=== PATIENT | male | born 1980 ===

== ENCOUNTER 2020-10-01 20:10 | Emergency (ER) | payer BC ==
[~2020-10-01] VITALS: Ht 160 cm; Wt 59.6 kg
[2020-10-01 20:19] VITALS: BP 126/85
--- NOTE | 2020-10-01 22:04 | NUR ---
Pool Manager: Pt walked back from lobby to room at this time. Steady upon ambulation. No acute distress noted.
[2020-10-01 23:25] LABS: BASOPHILS % (AUTO) 1 % (0-1); EOSINOPHILS % (AUTO) 5 % (1-7); LYMPHOCYTES % (AUTO) 26 % (22-44); MEAN CORPUSCULAR HEMOGLOBIN 32.9 pg (27.5-34.5); MEAN CORPUSCULAR HGB CONC 35.5 g/dL (33.2-36.2); MEAN PLATELET VOLUME 6.7 fL (7.4-10.4); MONOCYTES % (AUTO) 7 % (2-9); NEUTROPHILS % (AUTO) 61 % (42-75); PLATELET COUNT 292 x10^3/uL (130-400); RED BLOOD COUNT 4.71 x10^6/uL (4.38-5.82); RED CELL DISTRIBUTION WIDTH 13.6 % (9.4-14.8)
[2020-10-01 23:26] LABS: HCT (SEDRATE) 43.6 % (39.2-51.8)
[2020-10-01 23:31] LABS: ALBUMIN 3.9 g/dL (3.4-5.0); ANION GAP 7 mmol/L (5-15); C-REACTIVE PROTEIN, QUANT 0.39 mg/dL (0.02-0.49); CALCIUM 8.4 mg/dL (8.5-10.1); CHLORIDE 108 mmol/L (98-107); CREATININE 1.16 mg/dL (0.7-1.3)
[2020-10-02] MEDS ORDERED: HYDROcodone/APAP 10/325 MG TABLET PO ONE (01:00)
[2020-10-02] MEDS ORDERED: HYDROcodone/APAP 10/325 MG TABLET ONE (01:16)
== END 2020-10-02 01:25 | disposition home or self-care (01) ==
LOC: ED 23:04
DX: M77.8 Other enthesopathies, not elsewhere classified (principal); M79.642 Pain in left hand
CPT/HCPCS: 36415; 80048; 82040; 84550; 85025; 85651; 86140; 99284

== ENCOUNTER 2020-10-03 22:44 | Inpatient (IN) | payer BC ==
[~2020-10-03] VITALS: Ht 160 cm; Wt 60.1 kg
--- NOTE | 2020-10-04 00:17 | NUR ---
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 TO ROOM FROM LOBBY AT THIS TIME.
--- NOTE | 2020-10-04 00:27 | NUR ---
erp at bedside with supervisor fabrication and assembly
[2020-10-04 00:54] LABS: BASOPHILS % (AUTO) 1 % (0-1); EOSINOPHILS % (AUTO) 2 % (1-7); LYMPHOCYTES % (AUTO) 18 % (22-44); MEAN CORPUSCULAR HEMOGLOBIN 32.8 pg (27.5-34.5); MEAN CORPUSCULAR HGB CONC 35.3 g/dL (33.2-36.2); MEAN PLATELET VOLUME 6.6 fL (7.4-10.4); MONOCYTES % (AUTO) 7 % (2-9); NEUTROPHILS % (AUTO) 73 % (42-75); PLATELET COUNT 274 x10^3/uL (130-400); RED BLOOD COUNT 4.89 x10^6/uL (4.38-5.82); RED CELL DISTRIBUTION WIDTH 13.3 % (9.4-14.8)
[2020-10-04 00:55] LABS: HCT (SEDRATE) 45.4 % (39.2-51.8)
[2020-10-04] MEDS ORDERED: MORPHINE SULFATE 4 MG/ML, 1ML ONE (00:58)
[2020-10-04] MEDS ORDERED: ONDANSETRON 2MG/ML, 2ML ONE ×2 (00:58→11:02)
[2020-10-04] MEDS ORDERED: MORPHINE SULFATE 4 MG/ML, 1ML IVPush PRN (01:00)
[2020-10-04] MEDS ORDERED: VANCOMYCIN 1,400 MG in SODIUM CHLORIDE 0.9% 250 ML IV ONE (01:00)
[2020-10-04] MEDS ORDERED: VANCOMYCIN PER PHARMACY MC PRN ×2 (01:00→15:00)
[2020-10-04] MEDS ORDERED: ONDANSETRON 2MG/ML, 2ML IVPush ONE (01:00)
[2020-10-04] MEDS ORDERED: CEFTRIAXONE 1,000 MG in DEXTROSE 5% 50 ML IVPB ONE (01:00)
[2020-10-04 01:05] LABS: ALBUMIN 3.9 g/dL (3.4-5.0); ANION GAP 9 mmol/L (5-15); CALCIUM 8.8 mg/dL (8.5-10.1); CHLORIDE 106 mmol/L (98-107); CREATININE 0.79 mg/dL (0.7-1.3)
--- NOTE | 2020-10-04 01:51 | NUR ---
ABX HUNG AFTER BC
--- NOTE | 2020-10-04 02:05 | NUR ---
REPORT GIVEN TO ROLY PERAZA
[2020-10-04 02:14] VITALS: BP 135/87
[2020-10-04] MEDS: morphine SULFATE 10 MG/ML, 1ML IVPush PRN ×4 (04:29→22:04)
[2020-10-04] MEDS ORDERED: ONDANSETRON 2MG/ML, 2ML IVPush PRN ×2 (04:30→12:00)
[2020-10-04] MEDS ORDERED: LABETALOL 5MG/ML, 20ML IVPush PRN (04:30)
[2020-10-04 07:18] VITALS: BP 120/74
[2020-10-04] MEDS: SENNA/DOCUSATE TABLET PO SCH ×2 (08:36→08:43)
[2020-10-04] MEDS ORDERED: CHLORHEXIDINE 15 ML UDC ONE (10:18)
[2020-10-04] MEDS ORDERED: CHLORHEXIDINE 15 ML UDC PO ONE (10:30)
[2020-10-04] MEDS ORDERED: CEFAZOLIN 1,000 MG ONE (11:02)
[2020-10-04] MEDS ORDERED: PROPOFOL 10 MG/ML, 20ML ONE (11:02)
[2020-10-04] MEDS ORDERED: DEXAMETHASONE 4 MG/ML, 1ML ONE (11:02)
[2020-10-04] MEDS ORDERED: BUPIVACAINE/PF 0.5% ONE (11:34)
[2020-10-04] MEDS ORDERED: FENTANYL PF 250 MCG/5ML ONE ×2 (11:34→12:43)
[2020-10-04] MEDS ORDERED: MIDAZOLAM 1 MG/ML, 2ML ONE (11:39)
[2020-10-04] MEDS ORDERED: HYDROmorphone 1 MG/ML, 1ML INJ IVPush PRN (12:00)
[2020-10-04] MEDS ORDERED: ACETAMINOPHEN 325 MG TABLET PO PRN (12:00)
[2020-10-04] MEDS ORDERED: OXYcodone 5 MG/5 ML ORAL.SOL UDC PO PRN (12:00)
[2020-10-04] MEDS ORDERED: LORazepam 2 MG/ML, 1ML IVPush PRN (12:00)
[2020-10-04] MEDS ORDERED: MEPERIDINE/PF 25MG/0.5ML IVPush PRN (12:00)
[2020-10-04] MEDS ORDERED: PROMETHAZINE 25 MG/ML, 1ML IVPush PRN (12:00)
[2020-10-04] MEDS ORDERED: LABETALOL 5MG/ML, 20ML IV PRN (12:00)
[2020-10-04] MEDS ORDERED: FENTANYL PF 100 MCG/2ML IV PRN (12:00)
[2020-10-04] MEDS ORDERED: hydrALAzine 20 MG/ML, 1ML IV PRN (12:00)
[2020-10-04] MEDS ORDERED: METHOCARBAMOL 1,000 MG in DEXTROSE 5% 100 ML IV PRN (12:00)
[2020-10-04] MEDS ORDERED: ACETAMINOPHEN 650 MG/20.3 ML UDC ONE (12:39)
[2020-10-04] MEDS ORDERED: OXYcodone 5 MG/5 ML ORAL.SOL UDC ONE (12:39)
[2020-10-04 13:30] VITALS: BP 126/83
[2020-10-04] MEDS ORDERED: PHARMACOKINETIC CONSULTATION MC ONE (15:00)
[2020-10-04] MEDS ORDERED: PHARMACOKINETIC MONITORING MC PRN (15:00)
[2020-10-04] MEDS: VANCOMYCIN 1,000 MG in SODIUM CHLORIDE 0.9% 250 ML IV SCH ×2 (16:33→23:50)
[2020-10-04 19:12] VITALS: BP 102/63
[2020-10-04] MEDS ORDERED: CEFTRIAXONE 1,000 MG in DEXTROSE 5% 50 ML IVPB SCH (23:00)
[2020-10-04] MEDS: CEFTRIAXONE 2,000 MG in DEXTROSE 5% 50 ML IVPB SCH (23:05)
[2020-10-05 00:03] VITALS: BP 111/70
[2020-10-05 04:35] LABS: BASOPHILS % (AUTO) 0 % (0-1); EOSINOPHILS % (AUTO) 2 % (1-7); LYMPHOCYTES % (AUTO) 21 % (22-44); MEAN CORPUSCULAR HEMOGLOBIN 32.6 pg (27.5-34.5); MEAN CORPUSCULAR HGB CONC 35.4 g/dL (33.2-36.2); MEAN PLATELET VOLUME 6.5 fL (7.4-10.4); MONOCYTES % (AUTO) 8 % (2-9); NEUTROPHILS % (AUTO) 69 % (42-75); PLATELET COUNT 282 x10^3/uL (130-400); RED BLOOD COUNT 4.77 x10^6/uL (4.38-5.82)
[2020-10-05 04:45] LABS: ALBUMIN 3.4 g/dL (3.4-5.0); ANION GAP 6 mmol/L (5-15); CALCIUM 8.5 mg/dL (8.5-10.1); CHLORIDE 106 mmol/L (98-107)
[2020-10-05 04:48] LABS: ALANINE AMINOTRANSFERASE 27 U/L (12-78); ALKALINE PHOSPHATASE 57 U/L (45-117); BILIRUBIN,TOTAL 1.1 mg/dL (0.2-1.0); CREATININE 0.78 mg/dL (0.7-1.3); TOTAL PROTEIN 7.4 g/dL (6.4-8.2)
[2020-10-05 06:39] VITALS: BP 105/64
[2020-10-05] MEDS: VANCOMYCIN 1,000 MG in SODIUM CHLORIDE 0.9% 250 ML IV SCH ×2 (08:17→16:27)
[2020-10-05] MEDS: SENNA/DOCUSATE TABLET PO SCH (08:17)
[2020-10-05] MEDS: ACETAMINOPHEN 325 MG TABLET PO PRN ×2 (08:26→21:50)
[2020-10-05 12:53] VITALS: BP 114/76
[2020-10-05 19:46] VITALS: BP 120/70
[2020-10-05] MEDS: CEFTRIAXONE 2,000 MG in DEXTROSE 5% 50 ML IVPB SCH (22:59)
[2020-10-06] MEDS: VANCOMYCIN 1,000 MG in SODIUM CHLORIDE 0.9% 250 ML IV SCH ×3 (00:09→16:21)
[2020-10-06 00:13] VITALS: BP 103/68
[2020-10-06 06:21] VITALS: BP 112/79
[2020-10-06] MEDS: SENNA/DOCUSATE TABLET PO SCH (08:16)
[2020-10-06] MEDS: CEFAZOLIN 2,000 MG in SODIUM CHLORIDE 0.9% 50 ML IV SCH ×2 (11:52→19:32)
[2020-10-07] MEDS: VANCOMYCIN 1,000 MG in SODIUM CHLORIDE 0.9% 100 ML IV SCH ×2 (00:26→08:06)
[2020-10-07 00:38] VITALS: BP 118/77
[2020-10-07] MEDS: CEFAZOLIN 2,000 MG in SODIUM CHLORIDE 0.9% 50 ML IV SCH ×3 (03:21→21:16)
[2020-10-07 06:53] VITALS: BP 101/63
[2020-10-07] MEDS: SENNA/DOCUSATE TABLET PO SCH (08:05)
[2020-10-07 13:13] VITALS: BP 113/73
[2020-10-07 18:34] VITALS: BP 113/75
[2020-10-08 00:07] VITALS: BP 105/69
[2020-10-08 04:58] LABS: BASOPHILS % (AUTO) 1 % (0-1); EOSINOPHILS % (AUTO) 6 % (1-7); LYMPHOCYTES % (AUTO) 35 % (22-44); MEAN CORPUSCULAR HEMOGLOBIN 32.4 pg (27.5-34.5); MEAN CORPUSCULAR HGB CONC 35.6 g/dL (33.2-36.2); MEAN PLATELET VOLUME 6.3 fL (7.4-10.4); MONOCYTES % (AUTO) 8 % (2-9); NEUTROPHILS % (AUTO) 51 % (42-75); PLATELET COUNT 338 x10^3/uL (130-400); RED BLOOD COUNT 4.81 x10^6/uL (4.38-5.82); RED CELL DISTRIBUTION WIDTH 13.1 % (9.4-14.8)
[2020-10-08] MEDS: CEFAZOLIN 2,000 MG in SODIUM CHLORIDE 0.9% 50 ML IV SCH (05:00)
[2020-10-08 05:04] LABS: HCT (SEDRATE) 43.8 % (39.2-51.8)
[2020-10-08 05:10] LABS: CHLORIDE 105 mmol/L (98-107)
[2020-10-08 05:20] LABS: ALANINE AMINOTRANSFERASE 26 U/L (12-78); ALBUMIN 3.6 g/dL (3.4-5.0); ALKALINE PHOSPHATASE 59 U/L (45-117); ANION GAP 6 mmol/L (5-15); BILIRUBIN,TOTAL 0.9 mg/dL (0.2-1.0); CALCIUM 8.7 mg/dL (8.5-10.1); CREATINE KINASE, TOTAL 82 U/L (39-308); CREATININE 0.85 mg/dL (0.7-1.3); TOTAL PROTEIN 7.7 g/dL (6.4-8.2)
[2020-10-08 06:21] VITALS: BP 99/65
[2020-10-08] MEDS: SENNA/DOCUSATE TABLET PO SCH (08:08)
[2020-10-08] MEDS: ERTAPENEM 1 GM in SODIUM CHLORIDE 0.9% 50 ML IV SCH (10:31)
[2020-10-08 12:51] VITALS: BP 104/66
[2020-10-08 18:26] VITALS: BP 121/73
[2020-10-09 00:03] VITALS: BP 104/67
[2020-10-09 06:54] VITALS: BP 103/72
[2020-10-09] MEDS: SENNA/DOCUSATE TABLET PO SCH (08:51)
[2020-10-09] MEDS: ERTAPENEM 1 GM in SODIUM CHLORIDE 0.9% 50 ML IV SCH (11:48)
[2020-10-09 13:05] VITALS: BP 103/69
[2020-10-09] MEDS ORDERED: ACET325T26 PO (15:37)
[2020-10-09] MEDS ORDERED: ERTA1VIA4 IV (15:37)
== END 2020-10-09 17:49 | disposition home or self-care (01) | DRG 580 ==
LOC: ED 23:47 → EDIP 10-04 01:59 → 3N 10-04 02:11
PROVIDERS: ADMIT Family Medicine; ATTEND Internal Medicine
PROC: 0JBK0ZZ Excision of Left Hand Subcutaneous Tissue and Fascia, Open Approach (ICD-10-PCS; principal; 2020-10-04 10:30)
PROC: 02HV33Z Insertion of Infusion Device into Superior Vena Cava, Percutaneous Approach (ICD-10-PCS; 2020-10-08)
PROC: B548ZZA Ultrasonography of Superior Vena Cava, Guidance (ICD-10-PCS; 2020-10-08)
PROC: B5181ZA Fluoroscopy of Superior Vena Cava using Low Osmolar Contrast, Guidance (ICD-10-PCS; 2020-10-08)
DX: L03.012 Cellulitis of left finger (principal); L02.512 Cutaneous abscess of left hand; R78.81 Bacteremia; Z20.822 Contact with and (suspected) exposure to COVID-19; B95.61 Methicillin susceptible Staphylococcus aureus infection as the cause of diseases classified elsewhere; R70.0 Elevated erythrocyte sedimentation rate; R79.82 Elevated C-reactive protein (CRP); M65.88 Other synovitis and tenosynovitis, other site
CPT/HCPCS: 36415; 96374; 96375; 99285; S0020; 36573; 80048; 80053; 80202; 82040; 82550; 85025; 85651; 86140; 87040; 87070; 87075; 87077; 87186; 87205; 87635; G0378; J0690; J0696; J1100; J1335; J2250; J2405; J2704; J3010; J3370; C1751; J2270; J7050